=== PATIENT | female | born 1955 | race Two or more races ===

== ENCOUNTER 2019-06-13 07:34 | Day surgery (SDC) | payer OTHER ==
[2019-06-13] MEDS ORDERED: FAMOTIDINE/PF INJ 20 MG/2 ML VIAL IV ONE (11:52)
[2019-06-13] MEDS ORDERED: FENTANYL PF 100MCG/2ML AMPUL ONE (11:52)
[2019-06-13] MEDS ORDERED: MIDAZOLAM HCL 2 MG/2ML VIAL ONE (11:52)
[2019-06-13] MEDS ORDERED: BUPIVACAINE 0.5 % PF 150 MG/30 ML VIAL ONE (12:33)
[2019-06-13] MEDS ORDERED: HYDROCODONE/APAP 5/325MG 1 EACH TABLET ONE (13:40)
== END 2019-06-13 14:15 | disposition home or self-care (01) ==
LOC: DS 07:34
PROVIDERS: ATTEND Orthopaedic Surgery
DX: G56.01 Carpal tunnel syndrome, right upper limb (principal); G47.33 Obstructive sleep apnea (adult) (pediatric); E78.00 Pure hypercholesterolemia, unspecified; F17.210 Nicotine dependence, cigarettes, uncomplicated; Z90.721 Acquired absence of ovaries, unilateral
CPT/HCPCS: 64721; A6402; J2250; J3010; J3490 ×2